=== PATIENT | male | born 2000 | race Caucasian/White ===

== ENCOUNTER 2020-01-24 16:16 | Emergency (ER) | payer OTHER, SELFPAY ==
--- NOTE | ~2020-01-24 | CT_ITS ---
EXAMINATION: CT facial bones wo [facility] EXAM DATE: 01/24/2020 18:20 INDICATION: History facial injury, laceration left cheek. TECHNIQUE: Spiral CT of the facial bones was acquired in the axial plane without contrast. Coronal reformatted images were also reviewed. The dose-length product (DLP) for this examination was 332.61 mGy-cm. The exposure was tailored according to patient size, and iterative reconstruction (ASIR) wa s used as additional dose reduction technique. There is no prior study for comparison. FINDINGS: There are no displaced acute nasal bone fractures. The mandible, sinuses and orbits are in tact. The orbits, globes and extraocular muscles are unremarkable. The visualized sinuses and mas toid air cells are well aerated. Left cheek, infraorbital swelling. IMPRESSION: 1. No acute facial fracture. 2. Left facial swelling. Reviewed, dictated and finalized at location A.
[2020-01-24 16:30] VITALS: BP 117/72; PULSE 96; RESP 18; TEMP 36.4; O2SAT 96
--- NOTE | 2020-01-24 17:51 | ED.WOUNDLAC ---
HPI - Wound/Laceration General Chief Complaint: Wound/Laceration Stated Complaint: facial injury Time Seen by Provider: 01/24/20 16:53 Source: patient Mode of arrival: ambulatory Limitations: no limitations History of Present Illness HPI narrative: This is a 19 year old male that presents to the ER for facial injury sustained just prior to arrival. Reports he was at wrestling practice and was kneed in the face. Reports a laceration below the left eye and bruising. Denies loss of consciousness, vision changes, vomiting, numbness, or weakness. Related Data Home Medications Medication Instructions Recorded Confirmed fluticasone propion-salmeterol 2 puff INHALATION BID 01/24/20 01/24/20 [Advair HFA] Allergies Allergy/AdvReac Type Severity Reaction Status Date / Time bee venom protein (honey bee) Allergy Hives Verified 01/24/20 16:38 [bees] peanut Allergy Swelling Verified 01/24/20 16:38 of Lip/Tongue/Throat Review of Systems Review of Systems: Narrative: CONSTITUTIONAL: Denies fever EYES: Denies visual changes GASTROINTESTINAL: Denies vomiting NEUROLOGIC: Denies headache, numbness, or weakness. All systems reviewed & are unremarkable except as noted in HPI and below PMFSH Past Medical History Medical History (Updated 01/24/20 @ 20:31 by Felicita Bundy PA-C) History of asthma Social History Social History (Updated 01/24/20 @ 17:54 by Felicita Bundy PA-C) Substance use: never Gender identity (if verbalized by the patient): Male Exam Narrative: Exam Narrative: GENERAL: Well-appearing, well-nourished, and in no acute distress. HEAD: Normocephalic. Ecchymosis below the left eye with 2 cm linear laceration into subcutaneous tissue EYES: PERRLA and EOMI. ENT: Nares clear, no rhinorrhea or epistaxis. Mucous membranes moist. Oropharynx without tonsillar hypertrophy exudate or other lesions. Bilateral TMs pearly sifuentes non-bulging NECK: Supple. No adenopathy or masses. CHEST: Clear to auscultation. No respiratory distress. No wheezes rales or rhonchi HEART: Regular rate and rhythm. No murmur heard. Normal peripheral pulses. EXTREMITIES: Normal range of motion. No edema. Strength equal in bilateral upper extremities (5/5) SKIN: Warm, dry, no rash. NEURO: No focal deficits. Alert and oriented x3. Cranial nerves II through XII grossly intact PSYCH: Normal mood and affect Course Vital Signs Vital signs: Vital Signs Temperature 97.5 F L 01/24/20 16:30 Pulse Rate 96 01/24/20 16:30 Respiratory Rate 18 01/24/20 16:30 Blood Pressure 117/72 01/24/20 16:30 Pulse Oximetry 96 01/24/20 16:30 Temperature 97.5 F L 01/24/20 16:30 Pulse Rate 96 01/24/20 16:30 Respiratory Rate 18 01/24/20 16:30 Blood Pressure 117/72 01/24/20 16:30 Pulse Oximetry 96 01/24/20 16:30 Procedures Laceration Laceration 1: Date: 01/24/20 Time: 20:29 Site: face Side (If applicable): left Size (cm): 2 Description: linear Depth: simple, single layer Local Anesthetic: lidocaine 1% and with epi Amount of anesthesia used (mL): 3 Pre-repair: irrigated ====== Skin Level ====== Skin layer closed with: nylon Size (cm): 5-0 Number of sutures: 3 Technique: simple, interrupted ====== Subcutaneous Layer ====== ====== Muscle Layer ====== ====== Tendon Layer ====== MDM - Wound/Laceration MDM Narrative Medical decision making narrative: Patient presents to the emergency department for facial injury 3 days prior to arrival. Reports he was kneed in the face at wrestling practice. Denies any vision changes or vomiting. His vitals are normal. He is neurologically intact. CT scan of the facial bones is without acute osseous abnormalities. Patient's laceration was cleansed and closed with sutures. He was educated on wound care. He is to follow-up with primary for suture removal. He w
[2020-01-24 20:30] VITALS: BP 119/71; PULSE 78; RESP 16; O2SAT 99
== END 2020-01-24 20:45 | disposition home or self-care (01) ==
PROVIDERS: Emergency Provider Family Medicine
DX: S01.81XA Laceration without foreign body of other part of head, initial encounter (principal); W51.XXXA Accidental striking against or bumped into by another person, initial encounter; Y93.72 Activity, wrestling
CPT/HCPCS: 12011; 70486; 99284

== ENCOUNTER 2022-06-05 14:29 | Emergency (ER) | payer BC, OTHER, SELFPAY ==
--- NOTE | ~2022-06-05 | XR_ITS ---
EXAM: XR shoulder RT min 2V DATE: 06/05/2022 15:17 HISTORY: Trauma, dislocation WHILE WRESTLING. . COMPARISON: None available. FINDINGS: Normal mineralization. No fracture or dislocation. No lytic or blastic lesion. Joint space s are maintained. No erosion or periosteal change. Soft tissues within normal limits. IMPRESSION: No acute osseous finding in the right shoulder. Reviewed, dictated and finalized at location K. LOGIST
[2022-06-05 14:39] VITALS: BP 134/74; PULSE 94; RESP 16; TEMP 37.6; O2SAT 96
[2022-06-05] MEDS: HYDROmorphone HCL INJ (*CRX) 1 MG/ML SYR IM (14:56)
[2022-06-05] MEDS: ONDANSETRON HCL ODT 4 MG TABLET PO (14:57)
--- NOTE | 2022-06-05 15:41 | ED.UPPEXIN ---
HPI - Extremity Injury (Upper) General Chief Complaint: Extremity Injury, Upper Stated Complaint: right shoulder dislocation Time Seen by Provider: 06/05/22 14:40 Source: patient and family Mode of arrival: ambulatory Limitations: no limitations History of Present Illness HPI narrative: 22 years old white male came to the emergency room by private car with right shoulder injury while wrestling prior to arrival. He denies other injuries. Patient referred to our emergency room by urgent care to rule out the possibility of right shoulder dislocation. Related Data Home Medications Medication Instructions Recorded Confirmed fluticasone propionate 45 2 puff inhalation BID 01/24/20 01/24/20 mcg-salmeterol 21 mcg/actuation HFA inhaler (Advair HFA) Allergies Allergy/AdvReac Type Severity Reaction Status Date / Time bee venom protein (honey bee) Allergy Hives Verified 06/05/22 14:59 [bees] peanut Allergy Swelling Verified 06/05/22 14:59 of Lip/Tongue/Throat Review of Systems Review of Systems: All systems reviewed & are unremarkable except as noted in HPI and below PMFSH Past Medical History Medical History History of asthma Social History Social History Substance use: never Gender identity (if verbalized by the patient): Male Exam Narrative: General appearance: Well-developed, well-nourished Skin: Normal color Head: Normocephalic, nontraumatic Eyes: Clear conjunctiva ENT: Oropharynx normal, ears normal, nose normal Neck: Supple, nontender Chest and respiratory: Airway patent, no respiratory distress, no accessory muscle use Heart: Regular rate/rhythm Vascular: Normal peripheral pulses, normal capillary refill. Musculoskeletal: Mild diffuse tenderness of the right shoulder, slight limited range of motion, no deformity, no swelling Neurologic: Alert and oriented ?3, [employer] is normal as tested, no gross motor deficit Course Vital Signs Vital signs: Vital Signs Temperature 37.6 C 06/05/22 14:39 Pulse Rate 94 06/05/22 14:39 Respiratory Rate 16 06/05/22 14:39 Blood Pressure 134/74 06/05/22 14:39 Pulse Oximetry 96 06/05/22 14:39 Temperature 37.6 C 02/19/23 14:39 Pulse Rate 82 06/05/22 16:04 Respiratory Rate 18 06/05/22 16:04 Blood Pressure 124/64 06/05/22 16:04 Pulse Oximetry 97 06/05/22 16:04 MDM - Extremity Injury (Upper) MDM Narrative Medical decision making narrative: Right shoulder injury while wrestling, strain, sprain, dislocation, fracture is my concern. X-ray of right shoulder showed no acute abnormalities. Patient received Dilaudid 1 mg IM, Zofran 4 mg orally prior to discharge, feeling great. The pt was discharged to home.the pt,s condition upon discharge was fair,education was provided to the pt in reference to the final impression,discharge study results,treatment,prognosis and need for follow up . Differential Diagnosis Differential diagnosis: Likely other (Sprain/strain of the right shoulder, dislocation, fracture) Critical Care Time Critical Care Time Critical Care Time: Yes Total Critical Care Time: 10 Discharge Plan Discharge Clinical Impression: Shoulder sprain Patient Disposition: Home, Self-Care Condition: Improved Instructions: Shoulder Sprain (ED) Additional Instructions: Return if symptoms are worsening , call your family physician for appointment, take Tylenol as as needed for aches and pain, continue home medications. Prescriptions: New naproxen [Naprosyn] 500 mg tablet 500 mg PO BID PRN (Reason: pain) Qty
[2022-06-05 16:04] VITALS: BP 124/64; PULSE 82; RESP 18; O2SAT 97
== END 2022-06-05 16:07 | disposition home or self-care (01) ==
PROVIDERS: Emergency Provider Emergency Medicine
DX: S43.401A Unspecified sprain of right shoulder joint, initial encounter (principal); X58.XXXA Exposure to other specified factors, initial encounter; Y93.72 Activity, wrestling; J45.909 Unspecified asthma, uncomplicated
CPT/HCPCS: 73030; 96372; 99283; A9270; J1170